=== PATIENT | male | born 2000 | race Caucasian/White ===

== ENCOUNTER 2024-12-03 16:50 | Inpatient (IN) | payer OTHER ==
[~2024-12-03] VITALS: Ht 177.8 cm; Wt 92.1 kg
[2024-12-03] MEDS ORDERED: LIDOCAINE 5% TRANSDERMAL PATCH TD PRN (17:15)
[2024-12-03] MEDS ORDERED: ACETAMINOPHEN 325 MG TABLET PO PRN (17:15)
[2024-12-03] MEDS ORDERED: MELATONIN 5 MG TABLET PO PRN (17:15)
[2024-12-03 17:17] VITALS: BP 122/68; PULSE 60; RESP 19; TEMP 97.7; O2SAT 100
[2024-12-03 17:18] VITALS: BP 122/68; PULSE 60; RESP 19; TEMP 97.7; O2SAT 100
[2024-12-03] MEDS ORDERED: POLYETHYLENE GLYCOL 3350 17 GM PACKET PO PRN (17:45)
[2024-12-03 18:50] VITALS: BP 122/68; PULSE 60; RESP 19; TEMP 97.7; O2SAT 100
[2024-12-03 20:21] VITALS: BP 127/59; PULSE 62; RESP 18; TEMP 98; O2SAT 100
[2024-12-03] MEDS: ETHYL ALCOHOL 62% ANTISEPTIC NASAL SANITIZER 0.6 ML AMPUL NASAL SCH (20:37)
[2024-12-03] MEDS: ENOXAPARIN SODIUM 40 MG/0.4 ML PF SYRINGE SQ SCH (20:37)
[2024-12-03] MEDS ORDERED: ENOXAPARIN SODIUM 30 MG/0.3 ML PF SYRINGE SQ SCH (21:00)
[2024-12-03] MEDS ORDERED: CETIRIZINE HCL 10 MG TABLET PO PRN (22:45)
[2024-12-03 23:30] VITALS: O2SAT 100
[2024-12-04 06:56] LABS: BASOPHILS % (AUTO) 1.2 % (0.0-2.0); EOSINOPHILS % (AUTO) 4.7 % (1.0-6.0); HEMOGLOBIN 13.3 g/dL (13.5-17.5); LYMPHOCYTES # (AUTO) 1.7 K/uL (1.0-4.8); LYMPHOCYTES % (AUTO) 27.7 % (22.0-44.0); MEAN CORPUSCULAR HEMOGLOBIN 30.3 pg (26.0-34.0); MEAN CORPUSCULAR VOLUME 89 fL (80-100); MONOCYTES # (AUTO) 0.6 K/uL (0.1-1.0); MONOCYTES % (AUTO) 10.8 % (2.0-9.0); NEUTROPHILS # (AUTO) 3.3 K/uL (1.8-7.7); NEUTROPHILS % (AUTO) 55.6 % (40.0-70.0); PLATELET COUNT (AUTO) 363 K/uL (150-450); RED BLOOD CELL COUNT(AUTO) 4.38 MIL/uL (4.50-5.90); RED CELL DISTRIBUTION WIDTH 13.2 % (11.5-14.5)
[2024-12-04 07:25] LABS: ALANINE AMINOTRANSFERASE 445 U/L (12-78); ALBUMIN 3.3 g/dL (3.4-5.0); ALKALINE PHOSPHATASE 86 U/L (46-116); ANION GAP 4 mmol/L (8-16); ASPARTATE AMINOTRANSFERASE 184 U/L (15-37); BILIRUBIN,TOTAL 0.2 mg/dL (0.1-1.0); CALCIUM, TOTAL 9.1 mg/dL (8.8-10.5); CARBON DIOXIDE 30 mmol/L (22-29); CHLORIDE 102 mmol/L (98-107); CREATININE 0.93 mg/dL (0.60-1.30); GLOMERULAR FILTR. RATE CALC > 60 mL/min (>60); GLUCOSE,RANDOM 97 mg/dL (70-110); POTASSIUM 4.1 mmol/L (3.5-5.1); SODIUM SERUM 136 mmol/L (136-145); UREA NITROGEN, BLOOD 22 mg/dL (7-18)
[2024-12-04 07:38] VITALS: BP 122/63; PULSE 55; RESP 18; TEMP 97.5; O2SAT 98
[2024-12-04 08:00] VITALS: BP 122/63; PULSE 55; RESP 18; TEMP 97.5; O2SAT 98
[2024-12-04] MEDS ORDERED: GABAPENTIN 300 MG CAPSULE PO SCH (09:00)
[2024-12-04] MEDS: FLUTICASONE PROPIONATE 50 MCG/SPRAY 16 GM NASAL SPRAY NASAL SCH (09:24)
[2024-12-04] MEDS ORDERED: IBUPROFEN 400 MG TABLET PO PRN (13:45)
[2024-12-04 20:02] VITALS: BP 144/53; PULSE 71; RESP 18; TEMP 97.7; O2SAT 100
[2024-12-04 22:20] VITALS: O2SAT 100
[2024-12-05 08:00] VITALS: BP 134/76; PULSE 73; RESP 18; TEMP 97.8; O2SAT 100
[2024-12-05 08:02] LABS: ALANINE AMINOTRANSFERASE 368 U/L (12-78); ALBUMIN 3.3 g/dL (3.4-5.0); ALKALINE PHOSPHATASE 77 U/L (46-116); ANION GAP 5 mmol/L (8-16); ASPARTATE AMINOTRANSFERASE 128 U/L (15-37); BILIRUBIN,TOTAL 0.3 mg/dL (0.1-1.0); CARBON DIOXIDE 28 mmol/L (22-29); CHLORIDE 102 mmol/L (98-107); CREATININE 0.83 mg/dL (0.60-1.30); GLOMERULAR FILTR. RATE CALC > 60 mL/min (>60); GLUCOSE,RANDOM 92 mg/dL (70-110); POTASSIUM 4.2 mmol/L (3.5-5.1); SODIUM SERUM 135 mmol/L (136-145); TOTAL PROTEIN, SERUM 6.9 g/dL (6.4-8.2); UREA NITROGEN, BLOOD 22 mg/dL (7-18)
[2024-12-05] MEDS: ENOXAPARIN SODIUM 40 MG/0.4 ML PF SYRINGE SQ SCH (08:34)
[2024-12-05 20:02] VITALS: BP 134/66; PULSE 79; RESP 18; TEMP 98.5; O2SAT 97
[2024-12-05 23:16] VITALS: O2SAT 97
[2024-12-06 08:05] VITALS: BP 128/64; PULSE 76; RESP 18; TEMP 98.3; O2SAT 98
[2024-12-06 10:49] VITALS: O2SAT 98
[2024-12-06 20:02] VITALS: BP 127/84; PULSE 72; RESP 18; TEMP 97.8; O2SAT 98
[2024-12-06 22:01] VITALS: O2SAT 98
[2024-12-07 07:29] LABS: ALANINE AMINOTRANSFERASE 265 U/L (12-78); ALBUMIN 3.3 g/dL (3.4-5.0); ALKALINE PHOSPHATASE 81 U/L (46-116); ANION GAP 3 mmol/L (8-16); ASPARTATE AMINOTRANSFERASE 73 U/L (15-37); BILIRUBIN,TOTAL 0.2 mg/dL (0.1-1.0); CALCIUM, TOTAL 8.9 mg/dL (8.8-10.5); CARBON DIOXIDE 31 mmol/L (22-29); CHLORIDE 102 mmol/L (98-107); CREATININE 0.88 mg/dL (0.60-1.30); GLOMERULAR FILTR. RATE CALC > 60 mL/min (>60); GLUCOSE,RANDOM 90 mg/dL (70-110); SODIUM SERUM 136 mmol/L (136-145); TOTAL PROTEIN, SERUM 6.9 g/dL (6.4-8.2); UREA NITROGEN, BLOOD 18 mg/dL (7-18)
[2024-12-07 08:00] VITALS: BP 109/69; PULSE 54; RESP 18; TEMP 97.7; O2SAT 99
[2024-12-07 20:00] VITALS: BP 124/63; PULSE 86; RESP 17; TEMP 98.1; O2SAT 97
[2024-12-07 23:42] VITALS: O2SAT 97
[2024-12-08 08:00] VITALS: BP 117/63; PULSE 64; RESP 18; TEMP 98.7; O2SAT 98
[2024-12-08 20:00] VITALS: BP 116/67; PULSE 67; RESP 18; TEMP 97.9; O2SAT 20; O2SAT 97
[2024-12-09 07:59] LABS: ALANINE AMINOTRANSFERASE 228 U/L (12-78); ALBUMIN 3.6 g/dL (3.4-5.0); ALKALINE PHOSPHATASE 80 U/L (46-116); ANION GAP 6 mmol/L (8-16); ASPARTATE AMINOTRANSFERASE 65 U/L (15-37); BILIRUBIN,TOTAL 0.2 mg/dL (0.1-1.0); CALCIUM, TOTAL 9.5 mg/dL (8.8-10.5); CARBON DIOXIDE 32 mmol/L (22-29); CHLORIDE 103 mmol/L (98-107); CREATININE 0.92 mg/dL (0.60-1.30); GLOMERULAR FILTR. RATE CALC > 60 mL/min (>60); GLUCOSE,RANDOM 87 mg/dL (70-110); POTASSIUM 4.4 mmol/L (3.5-5.1); SODIUM SERUM 141 mmol/L (136-145); TOTAL PROTEIN, SERUM 7.2 g/dL (6.4-8.2); UREA NITROGEN, BLOOD 16 mg/dL (7-18)
[2024-12-09 08:00] VITALS: BP 103/67; PULSE 60; RESP 18; TEMP 97.6; O2SAT 100
[2024-12-09 20:02] VITALS: BP 123/51; PULSE 71; RESP 18; TEMP 97.9; O2SAT 99
[2024-12-09 21:52] VITALS: O2SAT 99
[2024-12-10 08:05] VITALS: BP 114/54; PULSE 60; RESP 18; TEMP 98.2; O2SAT 98
[2024-12-10 11:53] VITALS: O2SAT 98
[2024-12-10 20:00] VITALS: BP 113/56; PULSE 66; RESP 18; TEMP 97.9; O2SAT 98
[2024-12-11 08:00] VITALS: BP_SYST 116; BP_SYST 121; BP_DIAS 57; BP_DIAS 68; PULSE 59; RESP 16; RESP 17; TEMP 97.8; TEMP 98.1; O2SAT 98
== END 2024-12-11 11:06 | disposition home or self-care (01) | DRG 949 ==
LOC: 2WR 16:52
PROVIDERS: ADMIT Physical Medicine & Rehabilitation; ATTEND Physical Medicine & Rehabilitation
DX: T79 Certain early complications of trauma, not elsewhere classified (principal); M62.82 Rhabdomyolysis; R20.2 Paresthesia of skin; F44.4 Conversion disorder with motor symptom or deficit; M51.27 Other intervertebral disc displacement, lumbosacral region; X58.XXXD Exposure to other specified factors, subsequent encounter; Z74.09 Other reduced mobility; R26.81 Unsteadiness on feet; R27.8 Other lack of coordination; R74.01 Elevation of levels of liver transaminase levels; R53.1 Weakness; R29.90 Unspecified symptoms and signs involving the nervous system; Z79.899 Other long term (current) drug therapy
CPT/HCPCS: 80053; 85025; 87081; 97110; 97112; 97116; 97162; 97167; 97530; 97535; 99366; J1650